=== PATIENT | female | born 1990 | race Caucasian/White ===

== ENCOUNTER 2020-01-10 20:51 | Inpatient (IN) | payer MEDICAID ==
[~2020-01-10] VITALS: Ht 160 cm; Wt 62.2 kg
[2020-01-10] MEDS ORDERED: NO HOME MEDS (21:55)
[2020-01-10] MEDS ORDERED: iohexol 350MG/ML 100ml bottle IV ONE (22:13)
[2020-01-10] MEDS ORDERED: morphine 2 MG/ML inj. syringe IV PRN (22:15)
[2020-01-10] MEDS ORDERED: magnesium hydroxide 30ml (MOM) UD suspension PO PRN (22:15)
[2020-01-10] MEDS ORDERED: magnesium Cl slow-release 64mg tablet PO PRN (22:15)
[2020-01-10] MEDS ORDERED: mag hydrox/Alum hydrox/simeth 30ml oral suspension PO PRN (22:15)
[2020-01-10] MEDS ORDERED: magnesium 4gm in 100ml NS 100 ML IV PRN (22:15)
[2020-01-10] MEDS ORDERED: potassium Cl 20 mEq SR tablet PO PRN ×2 (22:15)
[2020-01-10] MEDS ORDERED: potassium CL 10mEq/100ml bag 100 ML IV PRN ×2 (22:15)
[2020-01-10] MEDS ORDERED: ondansetron/PF 4mg/2ml inj IV PRN (22:15)
[2020-01-10] MEDS ORDERED: magnesium 2GM in 50ml NS 50 ML IV PRN (22:15)
[2020-01-10] MEDS ORDERED: acetaminophen 325mg tablet PO PRN (22:15)
[2020-01-10 23:30] VITALS: BP 119/45
[2020-01-10] MEDS: HYDROcodone/acetaminophen 5mg/325mg tablet PO PRN (23:35)
[2020-01-10] MEDS: piperacillin/tazo 4.5gm/100ml 100 ML IV SCH (23:55)
[2020-01-11 06:31] LABS: BASOPHILS % (AUTO) 0.7 % (0-1); EOSINOPHILS # (AUTO) 0.1 X10'3 (0-0.9); EOSINOPHILS % (AUTO) 1.6 % (0-6); HEMATOCRIT 36.6 % (35.0-45.0); HEMOGLOBIN 12.1 g/dl (12.0-16.0); LYMPHOCYTES # (AUTO) 1.7 X10'3 (1.1-4.8); LYMPHOCYTES % (AUTO) 34.8 % (21-51); MEAN CORPUSCULAR HEMOGLOBIN 31.8 PG (27.0-31.0); MEAN CORPUSCULAR VOLUME 96.5 FL (78-98); MEAN PLATELET VOLUME 7.9 FL (7.4-10.4); MONOCYTES # (AUTO) 0.6 X10'3 (0-0.9); MONOCYTES % (AUTO) 13.3 % (2-12); NEUTROPHILS # (AUTO) 2.4 X10'3 (1.8-7.7); NEUTROPHILS % (AUTO) 49.6 % (42-75); PLATELET COUNT 302 X10'3 (140-440); RED BLOOD COUNT 3.79 X10'6 (4.20-5.60); RED CELL DISTRIBUTION WIDTH 15.6 % (11.5-14.5); WHITE BLOOD COUNT 4.8 X10'3 (4.5-11.0)
[2020-01-11 06:44] LABS: ALANINE AMINOTRANSFERASE 27 U/L (12-78); ALBUMIN/GLOBULIN RATIO 0.7 (1.1-1.5); ALKALINE PHOSPHATASE 46 IU/L (46-116); ANION GAP 7 (8-16); ASPARTATE AMINO TRANSFERASE 16 U/L (10-37); BILIRUBIN,TOTAL 0.3 MG/DL (0.1-1.0); BLOOD UREA NITROGEN 7 MG/DL (7-18); BUN/CREATININE RATIO 9.3 (6.6-38.0); CHLORIDE 106 MMOL/L (99-107); CREATININE 0.75 MG/DL (0.40-0.90); GLUCOSE 92 MG/DL (70-104); MAGNESIUM 2.1 MG/DL (1.5-2.4); POTASSIUM 4.1 MMOL/L (3.5-5.1); SODIUM 141 MMOL/L (135-145); TOTAL CARBON DIOXIDE 28.2 MMOL/L (24-32); TOTAL PROTEIN 7.1 G/DL (6.4-8.2); eGFR > 90 ML/MIN
[2020-01-11] MEDS: K and/or MAG REPLACEMENT MC SCH ×2 (08:00→20:00)
[2020-01-11] MEDS: vancomycin/NS 1 GM ADD-VANTAGE 250 ML IV SCH ×2 (08:36→19:24)
[2020-01-11] MEDS: HYDROcodone/acetaminophen 5mg/325mg tablet PO PRN ×3 (08:49→19:23)
[2020-01-11] MEDS: docusate sod 100mg capsule PO SCH ×2 (08:49→19:23)
[2020-01-11] MEDS: piperacillin/tazo 4.5gm/100ml 100 ML IV SCH ×2 (10:39→15:37)
[2020-01-11 18:00] VITALS: BP 96/43
--- NOTE | 2020-01-11 18:13 | NUR ---
Problems reprioritized. Patient report given, questions answered & plan of care reviewed with Speedy.
--- NOTE | 2020-01-11 18:45 | NUR ---
Received report from Pippa RN
[2020-01-11] MEDS: lactobacillus rhamnosus 10,000 MMU CELLS/CAPSULE PO SCH (19:22)
[2020-01-11 22:00] VITALS: BP 104/32
[2020-01-11] MEDS ORDERED: [UNRECOGNIZED DRUG - CODE] PO (22:50)
[2020-01-11] MEDS: LEVONORGESTREL ETHIN ESTRADIOL PO SCH (23:19)
[2020-01-12] MEDS: piperacillin/tazo 4.5gm/100ml 100 ML IV SCH ×3 (00:13→15:09)
[2020-01-12] MEDS: HYDROcodone/acetaminophen 5mg/325mg tablet PO PRN ×2 (00:20→04:43)
--- NOTE | 2020-01-12 06:37 | NUR ---
Gave report to CATRACHITO Cisneros
[2020-01-12 06:55] VITALS: BP 92/43
--- NOTE | 2020-01-12 06:56 | NUR ---
Patient in room [facility]014. I have received report from Speedy WINSTON and had the opportunity to ask questions and assume patient care.
[2020-01-12 07:15] LABS: EOSINOPHILS # (AUTO) 0.1 X10'3 (0-0.9); EOSINOPHILS % (AUTO) 2.8 % (0-6); HEMATOCRIT 33.1 % (35.0-45.0); HEMOGLOBIN 11.1 g/dl (12.0-16.0); LYMPHOCYTES # (AUTO) 1.6 X10'3 (1.1-4.8); LYMPHOCYTES % (AUTO) 39.3 % (21-51); MEAN CORPUSCULAR HEMOGLOBIN 32.1 PG (27.0-31.0); MEAN CORPUSCULAR HGB CONC 33.5 g/dL (33.0-36.5); MEAN CORPUSCULAR VOLUME 95.7 FL (78-98); MEAN PLATELET VOLUME 7.8 FL (7.4-10.4); MONOCYTES # (AUTO) 0.7 X10'3 (0-0.9); NEUTROPHILS # (AUTO) 1.6 X10'3 (1.8-7.7); NEUTROPHILS % (AUTO) 38.9 % (42-75); PLATELET COUNT 307 X10'3 (140-440); RED BLOOD COUNT 3.45 X10'6 (4.20-5.60); RED CELL DISTRIBUTION WIDTH 15.3 % (11.5-14.5); WHITE BLOOD COUNT 4.2 X10'3 (4.5-11.0)
[2020-01-12] MEDS: lactobacillus rhamnosus 10,000 MMU CELLS/CAPSULE PO SCH (07:17)
[2020-01-12] MEDS: vancomycin/NS 1 GM ADD-VANTAGE 250 ML IV SCH (07:17)
[2020-01-12] MEDS: docusate sod 100mg capsule PO SCH (07:17)
[2020-01-12 07:36] LABS: ALANINE AMINOTRANSFERASE 26 U/L (12-78); ALBUMIN 2.9 G/DL (3.4-5.0); ALBUMIN/GLOBULIN RATIO 0.7 (1.1-1.5); ALKALINE PHOSPHATASE 40 IU/L (46-116); ANION GAP 10 (8-16); ASPARTATE AMINO TRANSFERASE 20 U/L (10-37); BILIRUBIN,TOTAL 0.4 MG/DL (0.1-1.0); BLOOD UREA NITROGEN 8 MG/DL (7-18); BUN/CREATININE RATIO 10.7 (6.6-38.0); CALCIUM 8.8 MG/DL (8.5-10.1); CHLORIDE 106 MMOL/L (99-107); CREATININE 0.75 MG/DL (0.40-0.90); GLUCOSE 92 MG/DL (70-104); MAGNESIUM 2.1 MG/DL (1.5-2.4); SODIUM 141 MMOL/L (135-145); TOTAL CARBON DIOXIDE 24.6 MMOL/L (24-32); TOTAL PROTEIN 6.8 G/DL (6.4-8.2); eGFR > 90 ML/MIN
[2020-01-12] MEDS: K and/or MAG REPLACEMENT MC SCH (07:45)
[2020-01-12 07:46] LABS: TOTAL CELLS COUNTED 100
[2020-01-12 07:47] LABS: PLATELET ESTIMATE NORMAL
[2020-01-12] MEDS: LEVONORGESTREL ETHIN ESTRADIOL PO SCH (08:26)
[2020-01-12 08:31] VITALS: BP 99/43
[2020-01-12 10:22] VITALS: BP 96/50
[2020-01-12] MEDS ORDERED: magnesium hydroxide 30ml (MOM) UD suspension PO PRN (10:55)
--- NOTE | 2020-01-12 11:00 | NUR ---
Informed Dr. Godoy that BP has been running low systolically in 90s but is asymptomatic. No new orders at this time.
[2020-01-12] MEDS ORDERED: AMOX-422 PO (11:40)
--- NOTE | 2020-01-12 11:52 | NUR ---
Patient declined to have wound picture taken on discharge, dressing already changed today.
--- NOTE | 2020-01-12 12:05 | NUR ---
WOUND INFECTION EDUCATION PROVIDED BY [facility] 1. Patient instructed to call their primary doctor, or go the ED immediately if any of the following symptoms occur: * Increased pain in wound * Increase in drainage from the wound * Redness in the skin surrounding the wound * Warmth in the skin surrounding the wound * Bleeding from the wound * Temperature of 101 or greater 2. If any of these occur while in the hospital tell a nurse immediately. Addendum: 01/12/20 at 1205 by Mac Bauman RN Amended: Links added.
--- NOTE | 2020-01-12 16:09 | NUR ---
Patient discharge paperwork gone over with pt and signed. Pt was given the opportunity to ask questions. Pt walked to front lobby with all belongings. Family to take pt home.
[2020-01-12] MEDS ORDERED: VANCOMYCIN LEVEL IV ONE (19:30)
== END 2020-01-12 16:00 | disposition home or self-care (01) | DRG 383 ==
LOC: ER 20:52 → ED HOLD 22:14 → ORTHO 4S 23:15
PROVIDERS: ADMIT Family Medicine; ATTEND Family Medicine
DX: L03.113 Cellulitis of right upper limb (principal); F12.90 Cannabis use, unspecified, uncomplicated; W54.0XXA Bitten by dog, initial encounter; L02.413 Cutaneous abscess of right upper limb; Z87.891 Personal history of nicotine dependence; X58.XXXA Exposure to other specified factors, initial encounter; Y93.89 Activity, other specified; Y92.89 Other specified places as the place of occurrence of the external cause; Y99.8 Other external cause status
CPT/HCPCS: 36415; 73206; 80053; 83735; 85025; 87070; 87075; 87081; 87102; 99285; G0378; J2543; J3370; Q9967

== ENCOUNTER 2020-01-17 12:57 | Day surgery (SDC) | payer MEDICAID ==
[~2020-01-17 12:57] MED LIST: AMOX-422 PO; [UNRECOGNIZED DRUG - CODE] PO
[2020-01-17] MEDS ORDERED: LIDOcaine 2% 5ml jelly ONE (13:16)
== END 2020-01-17 13:46 | disposition home or self-care (01) ==
LOC: WOUND CARE 12:57
PROVIDERS: ATTEND Nurse Practitioner Family
DX: S51.851A Open bite of right forearm, initial encounter (principal); S51.852A Open bite of left forearm, initial encounter; L98.491 Non-pressure chronic ulcer of skin of other sites limited to breakdown of skin; F17.200 Nicotine dependence, unspecified, uncomplicated; F12.90 Cannabis use, unspecified, uncomplicated; W54.0XXA Bitten by dog, initial encounter; Y93.89 Activity, other specified; Y92.89 Other specified places as the place of occurrence of the external cause; Y99.8 Other external cause status
CPT/HCPCS: 97597